=== PATIENT | female | born 1990 | race African-American/Black ===

== ENCOUNTER 2020-01-29 11:35 | Emergency (ER) | payer OTHER, SELFPAY ==
[2020-01-29 11:43] VITALS: BP 131/70; PULSE 66; RESP 16; TEMP 37; O2SAT 100
--- NOTE | 2020-01-29 12:18 | ED.GENADULT ---
HPI - General Adult General Chief complaint: Skin/Abscess/Foreign Body Stated complaint: boil under right arm Time Seen by Provider: 01/29/20 12:18 Source: patient and RN notes reviewed Mode of arrival: ambulatory Limitations: no limitations History of Present Illness HPI narrative: 29-year-old -English female presents with complaints of RT axilla boil with drainage, redness, tenderness, and swelling for the past 4 days. Turmeric and tea tree oil for 2 days and last night apple cider vinegar (peeled off skin) without relief. Tender to touch. History of skin abscess. No fever or chills. No history of MRSA per Owen. No abdominal pain, nausea, and vomiting. LMP 01/23/20. Remains active. The patient reports she have not been diagnosed with COVID-19. The patient reports she is not waiting for the results of a COVID-19 lab test. The patient reports she do not have fever, chills, weakness, fatigue, myalgia, or facial swelling. The patient reports she do not have a new or worsening cough or shortness of breath. Denies chest pain. The patient reports she do not have any rhinorrhea, congestion, sore throat, loss of taste, nausea, vomiting, abdominal pain, and diarrhea. Tolerating po intake well. Denies recent traveling. Denies concerns for COVID-19 or exposures been home with limited outdoor exposure except for essential household needs, work, and return home. At this time, patient is not suspected of having COVID-19. Some parts of this dictation were generated by voice recognition software and may contain typographical and/or grammatical inaccuracies. Related Data Allergies Allergy/AdvReac Type Severity Reaction Status Date / Time No Known Allergies Allergy Verified 01/29/20 11:58 Review of Systems Review of Systems: Narrative: CONSTITUTIONAL: Denies fever, chills, sweats. EYES: Denies visual changes, redness, discharge. ENT: Denies rhinorrhea, congestion, sore throat, otalgia. CARDIOVASCULAR: Denies chest pain, palpitations, edema. RESPIRATORY: Denies dyspnea, wheezing, cough. GASTROINTESTINAL: Denies abdominal pain, nausea, vomiting, diarrhea. GENITOURINARY: Denies dysuria, hematuria, abnormal discharge. SKIN: Denies rash or itching. RT axilla boil with drainage, redness, tenderness, and swelling. MUSCULOSKELETAL: Denies acute back pain, joint pain, or myalgia. NEUROLOGIC: Denies numbness or focal weakness. PSYCHIATRIC: Denies anxiety or depression. All systems reviewed & are unremarkable except as noted in HPI and below. FORMERLY [facility], [facility]–1983 Past Medical History Medical History (Updated 01/31/20 @ 09:37 by TONIA Hinton) Boils Surgical History Surgical History (Updated 01/29/20 @ 12:45 by TONIA Hinton) History of cholecystectomy Family History Family History (Updated 01/29/20 @ 12:46 by TONIA Hinton) Father Unknown family medical history Mother Thyroid cancer Social History Social History (Updated 01/29/20 @ 12:47 by TONIA Hinton) Smoking status: Never smoker Tobacco type: cigarettes Second hand tobacco smoke exposure: No Alcohol intake: never Substance use: current Substance use type: marijuana Living arrangements: with family Occupation/Education: occupation Gender identity (if verbalized by the patient): Female Sexual Orientation (if Verbalized by the Patient): Straight or Heterosexual Comments Elevated Blood Pressure noted TODAY; hypertension, recommend follow up with PCP in 1-2 weeks for hypertension. Exam Narrative: Exam Narrative: GENERAL: This is a well-nourished, well-developed patient, in no apparent distress. Talking in full sentences without deficit and ambulate with steady gait without dyspnea. HEAD: normocephalic, atraumatic. EYES: PERRL. Sclera clear/white. Vision is grossly intact. NECK: Neck supple, non-tender without lymphadenopathy, masses or thyromegaly. CARDIOVASCULAR: Regular rate and rhythm without murmurs, gallops, or rubs
== END 2020-01-29 13:00 | disposition home or self-care (01) ==
PROVIDERS: Emergency Provider Nurse Practitioner Family
DX: L02.411 Cutaneous abscess of right axilla (principal)
CPT/HCPCS: 10060; 87070; 87075; 87076; 87205; 99213; G0463